=== PATIENT | male | born 1995 | race Caucasian/White ===

== ENCOUNTER 2019-04-05 10:13 | Emergency (ER) | payer MEDICAID, OTHER ==
[~2019-04-05] VITALS: Ht 180.3 cm; Wt 70.3 kg
--- NOTE | 2019-04-05 10:20 | NUR ---
CAME IN FOR HEADACHE STARTED 2 DAYS AGO. PT STATED POSSIBE HEAD TRAUMA BEC. HE GOT SO DRANK 2 DAYS AGO. TO ER BED 10, VSS, PROVIDED W WARM BLANKET, DR LUCIA AT BEDSIDE
--- NOTE | 2019-04-05 10:37 | NUR ---
Patient discharged to home in stable condition. Written and verbal after care instructions given. Patient verbalizes understanding of instruction.
[2019-04-05 10:38] VITALS: BP 116/71
== END 2019-04-05 10:38 | disposition home or self-care (01) ==
LOC: ER 10:17
DX: S00.81XA Abrasion of other part of head, initial encounter (principal); F10.129 Alcohol abuse with intoxication, unspecified; Y90.9 Presence of alcohol in blood, level not specified; W18.09XA Striking against other object with subsequent fall, initial encounter; Y93.89 Activity, other specified; Y92.89 Other specified places as the place of occurrence of the external cause; Y99.8 Other external cause status
CPT/HCPCS: Z7502